=== PATIENT | male | born 1995 | race Caucasian/White ===

== ENCOUNTER 2019-09-06 22:58 | Emergency (ER) | payer OTHER ==
[~2019-09-06] VITALS: Ht 198.1 cm; Wt 90.1 kg
[2019-09-06 23:04] VITALS: BP 144/81
[2019-09-06] MEDS ORDERED: LIDOCAINE 1%, 10ML INFIL ONE (23:30)
[2019-09-06] MEDS ORDERED: LIDOCAINE-MPF 1%, 5ML ONE (23:38)
[2019-09-06] MEDS ORDERED: LIDOCAINE-MPF 1%, 5ML INFIL ONE (23:45)
[2019-09-07] MEDS ORDERED: CEPHALEXIN 500 MG CAPSULE PO ONE
[2019-09-07] MEDS ORDERED: CEPHALEXIN 500 MG CAPSULE ONE (00:01)
[2019-09-07] MEDS ORDERED: OXYcodone/APAP 5/325MG TABLET ONE (00:08)
[2019-09-07] MEDS ORDERED: OXYcodone/APAP 5/325MG TABLET PO ONE (00:30)
== END 2019-09-07 00:13 | disposition home or self-care (01) ==
LOC: ED 23:58
DX: H66.42 Suppurative otitis media, unspecified, left ear (principal)
CPT/HCPCS: 10060; 99283; J3490